=== PATIENT | male | born 1980 | race Caucasian/White ===

== ENCOUNTER 2017-02-17 17:44 | Inpatient (IN) | payer OTHER ==
[~2017-02-17] VITALS: Ht 170.2 cm; Wt 72.6 kg
[2017-02-17 18:08] VITALS: BP 133/95
[2017-02-17] MEDS ORDERED: ASPI81EC98 PO (18:21)
[2017-02-17] MEDS ORDERED: LIDO4CRE22 TP (18:21)
[2017-02-17] MEDS ORDERED: METF1000 PO (18:21)
[2017-02-17] MEDS ORDERED: GABA-638 PO (18:21)
[2017-02-17] MEDS ORDERED: DICL1GEL TP (18:21)
[2017-02-17] MEDS ORDERED: LISI-424 PO (18:21)
[2017-02-17] MEDS ORDERED: INSU100S22 SUBQ (18:21)
[2017-02-17] MEDS ORDERED: GLIP5TAB4 PO (18:21)
[2017-02-17] MEDS ORDERED: BACL20TA4 PO (18:21)
[2017-02-17] MEDS ORDERED: METO50TA69 PO (18:21)
--- NOTE | 2017-02-17 18:34 | NUR ---
PATIENT TO BED 7.
[2017-02-17 18:49] LABS: HEMOGLOBIN 7.3 g/dL (12.0-18.0); MEAN CORPUSCULAR HEMOGLOBIN 15 pg (27-31)
[2017-02-17 18:53] LABS: HEMATOCRIT 26.4 % (36-52); MEAN CORPUSCULAR HGB CONC 28 g/dL (33-37); MEAN CORPUSCULAR VOLUME 53 fL (80-94); PLATELET COUNT (AUTO) 435 K/uL (140-450); RED BLOOD CELL COUNT(AUTO) 4.99 MIL/uL (4.20-6.10); RED CELL DISTRIBUTION WIDTH 19.5 % (11.6-13.7); WHITE BLOOD COUNT (AUTO) 7.7 K/uL (4.8-10.8)
--- NOTE | 2017-02-17 18:54 | NUR ---
36/M PRESENT TO ER C/O INSTRUCTED TO COME TO ER BY PMD---HGB 6 TODAY AT PMD OFFICE, PALE APPEARING DENIES RECTAL BLEEDING / NO HEMATURIA/ NO HEMATEMESIS ; DENIES DIZZINESS, DENIES FATIGUE; AAOx4, PERRLA, BREATHING EVEN AND EFFORTLESS. ERMD NOTIFIED OF PATIENT STATUS
[2017-02-17 18:56] LABS: APPEARANCE,URINE CLEAR (CLEAR); BLOOD, URINE NEGATIVE (NEGATIVE); COLOR,URINE YELLOW (YELLOW); LEUKOCYTE ESTERASE ,URINE NEGATIVE (NEGATIVE); NITRITE, URINE NEGATIVE (NEGATIVE); PH,URINE 5.5 (5.0-9.0); PROTEIN,URINE TRACE (NEGATIVE); UGLUCOSE TRACE (NEGATIVE); UROBILINOGEN,URINE 0.2 EU/dL (0.2 - 1)
[2017-02-17 18:57] LABS: BASOPHILS # (AUTO) 0.1 K/uL (0.00-0.22); EOSINOPHILS # (AUTO) 0.3 K/uL (0-0.4); LYMPHOCYTES # (AUTO) 2.1 K/uL (2.0-11.5); MONOCYTES # (AUTO) 0.5 K/uL (0.8-1.0); NEUTROPHILS # (AUTO) 4.9 K/uL (1.8-7.7)
--- NOTE | 2017-02-17 19:00 | NUR ---
Patient being evaluated by physician at bedside.
[2017-02-17 19:02] LABS: BILIRUBIN,URINE NEGATIVE (NEGATIVE)
[2017-02-17 19:03] LABS: INR 1.1 (0.8-1.2); PROTHROMBIN TIME 10.3 secs (10.8-13.4)
[2017-02-17 19:03] LABS: BACTERIA,URINE RARE /HPF (None Seen); MUCUS,URINE 4+ /LPF (None Seen); RBC,URINE 0-3 /HPF (0-5); SQUAMOUS EPITHELIAL CELL,UR 0-3 /LPF (0-3 (FEW)); WBC,URINE 0-3 /HPF (0-5)
[2017-02-17 19:09] LABS: ANION GAP 11.9 (8-16); CARBON DIOXIDE 28.1 mmol/L (21-32); CREATININE 0.8 mg/dL (0.6-1.3); TOTAL BILIRUBIN 0.2 mg/dL (0.0-1.0); TOTAL PROTEIN, SERUM 8.2 g/dL (6.4-8.2)
[2017-02-17] MEDS ORDERED: DEXTROSE 50% 50 ML SYR IVP ONE (19:20)
[2017-02-17] MEDS ORDERED: ALBUTEROL 0.083% 2.5 MG/3 ML NEBU IH PRN (19:50)
[2017-02-17] MEDS ORDERED: LORazepam 2 MG/ML VIAL IVP PRN (19:50)
[2017-02-17] MEDS ORDERED: MORPHINE SULFATE 2 MG/ML SYR IVP PRN (19:50)
[2017-02-17] MEDS ORDERED: HYDROcodone/APAP 5/325 MG 1 TAB TAB PO PRN (19:50)
[2017-02-17] MEDS ORDERED: ONDANSETRON 4 MG/2 ML VIAL IVP PRN (19:50)
[2017-02-17] MEDS ORDERED: INSULIN LISPRO SLIDING SCALE 100 UNITS/ML VIAL SUBQ PRN (19:50)
[2017-02-17] MEDS ORDERED: ACETAMINOPHEN 325 MG TAB PO PRN (19:50)
[2017-02-17] MEDS ORDERED: DEXTROSE 50% 50 ML SYR IVP PRN (19:50)
--- NOTE | 2017-02-17 20:15 | NUR ---
ADMITTED THIS 36 YEAR OLD MALE FROM ER PER STEVEN WITH CC OF ABNORMAL LABS WITH DX OF ANEMIA, ASSESSMENT DONE, VITAL SIGNS STABLE, DENIES ANY PAIN OR BLEEDING, SKIN IS INTACT, ORIENTED TO ROOM AND CALL LIGHT, INFORMED THE PLAN FOR 2 UNITS PRBC TRANSFUSION TONIGHT, VERBALIZED UNDERSTANDING, SAFETY MEASURES IN PLACE, CALL LIGHT WITHIN REACH.
--- NOTE | 2017-02-17 20:18 | NUR ---
Patient will be admitted to care of DR KILPATRICK. Admited to TELE. Will go to room 112B. Belongings list completed. Report to WINNIE PHILLIP.
[2017-02-17 20:30] VITALS: BP 116/74
--- NOTE | 2017-02-17 20:35 | NUR ---
BLOOD SUGAR CHECKED WITH 87 RESULT, TURKEY SANDWICH AND SODA PROVIDED, CONSUMED 100%, AMBULATORY TO BR WITH STEADY GAIT, ALL NEEDS ATTENDED.
[2017-02-17] MEDS: BLOOD GLUCOSE MONITORING 1 DEV DEV FS SCH (21:00)
[2017-02-17] MEDS ORDERED: PNEUMOCOCCAL VACCINE 23 MCG/0.5 ML VIAL IMVAC PRN (21:05)
--- NOTE | 2017-02-17 22:02 | NUR ---
VITAL SIGNS STABLE, AFEBRILE, 1ST UNIT PRBC STARTED, MONITORED FOR REACTION, VITAL SIGNS PER PROTOCOL.
[2017-02-17] MEDS: NACL 0.9% 1,000 ML IV SCH (22:17)
[2017-02-17 22:23] LABS: CKMB RELATIVE INDEX 1.4 (0.0-2.5); CREATINE KINASE MB 1.2 ng/mL (0-3.6)
--- NOTE | 2017-02-17 22:55 | NUR ---
ROUNDED ON PT, AWAKE TALKING TO SARITAE AT BEDSIDE, BLOOD TRANSFUSION ON-GOING, VITAL SIGNS STABLE, NO ADVERSE REACTION NOTED, MONITORED CLOSELY.
[2017-02-18] VITALS: BP 107/64
--- NOTE | 2017-02-18 01:10 | NUR ---
1ST UNIT PRBC DONE WITH NO REACTION NOTED, VITAL SIGNS STABLE, DENIES ANY PAIN AND NO SOB NOTED, 2ND UNIT PRBC STARTED, MONITORED FOR REACTION, VITAL SIGNS PER PROTOCOL.
[2017-02-18 03:35] LABS: CREATINE KINASE MB 0.6 ng/mL (0-3.6)
[2017-02-18 04:00] VITALS: BP 107/77
--- NOTE | 2017-02-18 04:20 | NUR ---
2ND UNIT PRBC DONE WITH NO REACTION NOTED, VITAL SIGNS STABLE, AMBULATED TO BR WITH STEADY GAIT AND VOIDED FREELY, IVF OF NS @80ML/H RESUMED, MONITORED CLOSELY.
--- NOTE | 2017-02-18 05:50 | NUR ---
BLOOD SUGAR CHECKED WITH 77 RESULT, ASYMPTOMATIC, ORANGE JUICE X2 PROVIDED, NO DISTRESS AT THIS TIME, IVF INFUSING WELL.
[2017-02-18 06:42] LABS: ANION GAP 9.5 (8-16); CALCIUM 8.3 mg/dL (8.5-10.1); CARBON DIOXIDE 28.6 mmol/L (21-32); CREATININE 0.8 mg/dL (0.6-1.3); POTASSIUM 4.1 mmol/L (3.5-5.1)
[2017-02-18] MEDS: BLOOD GLUCOSE MONITORING 1 DEV DEV FS SCH ×2 (06:45→11:16)
--- NOTE | 2017-02-18 06:50 | NUR ---
PATIENT HAS BEEN SCREENED AND CATEGORIZED MODERATE NUTRITION RISK. PATIENT WILL BE SEEN WITHIN 3-5 DAYS OF ADMISSION. 02/19/17-02/21/17 JESICA PIZANO MS, RDN
[2017-02-18 07:01] LABS: HEMATOCRIT 28.1 % (36-52); HEMOGLOBIN 8.6 g/dL (12.0-18.0); MEAN CORPUSCULAR HEMOGLOBIN 19 pg (27-31); MEAN CORPUSCULAR HGB CONC 30 g/dL (33-37); MEAN CORPUSCULAR VOLUME 61 fL (80-94); PLATELET COUNT (AUTO) 286 K/uL (140-450); RED BLOOD CELL COUNT(AUTO) 4.61 MIL/uL (4.20-6.10); RED CELL DISTRIBUTION WIDTH 31.3 % (11.6-13.7); WHITE BLOOD COUNT (AUTO) 7.8 K/uL (4.8-10.8)
[2017-02-18 07:07] LABS: EOSINOPHILS % (MANUAL) 4 % (0-4); LYMPHOCYTES % (MANUAL) 31 % (20-46); MONOCYTES % (MANUAL) 6 % (5-12); NEUTROPHILS % (MANUAL) 59 (43-65)
[2017-02-18 07:08] LABS: ANISOCYTOSIS 3+; HYPOCHROMASIA 2+
--- NOTE | 2017-02-18 07:16 | NUR ---
PT AWAKE, NO SIGNS OF DISTRESS, REPORT GIVEN TO RN REGINA FOR CONTINUITY OF CARE.
--- NOTE | 2017-02-18 07:20 | NUR ---
REPORT RECEIVED FROM ANALYTICAL DATA SCIENTIST, PT AAOX4, PT RESTING QUIETLY IN BED, RESP EVEN UNLABORED ON ROOM AIR, SKIN WARM DRY COLOR WNL, PLAN OF CARE REVIEWED, NO QUESTIONS OR CONCERNS, PT REPORTS NO PAIN OR DISCOMFORT, CALL [place] WITHIN REACH, SIDE RAILS UP, BED LOCKED IN LOW POSITION, WILL CONTINUE TO MONITOR.
[2017-02-18 08:00] VITALS: BP 114/84
[2017-02-18] MEDS: NACL 0.9% 1,000 ML IV SCH (08:20)
[2017-02-18] MEDS ORDERED: MAG SULF 2000 MG/WATER PREMIX 50 ML IV SCH (09:00)
--- NOTE | 2017-02-18 09:21 | NUR ---
MAG LEVEL 1.5 THIS AM, DR KILPATRICK NOTIFIED ON THE PHONE, MAG 2G IVPB STARTED AT THIS TIME, PT AAOX4, IVF INFUSING WELL, SITE CLEAR, PT REMAINS ON BOILING HOUSE HAND, DENIES PAIN OR DISCOMFORT, NO IMMEDIATE NEEDS AT THIS TIME, WILL CONTINEU TO MONITOR.
[2017-02-18 11:54] VITALS: BP 123/87
--- NOTE | 2017-02-18 11:56 | NUR ---
PT SITTING UP TALKING WITH VISITING FAMILY IN NAD, PT DENIES PAIN OR DISCOMFORT, VITALS STABLE, IVF INFUSING WELL, SITE CLEAR, DENIES ANY IMMEDIATE NEEDS, PT REAMINS ON ARTISTIC DIRECTOR, CALL [place] WITHIN REACH, SIDE RAILS UP, BED LOCKED IN LOW POSITION, WILL CONTINUE TO MONITOR.
[2017-02-18 12:02] LABS: CREATINE KINASE MB 0.7 ng/mL (0-3.6)
[2017-02-18] MEDS ORDERED: FERR325E14 PO (13:46)
--- NOTE | 2017-02-18 14:00 | NUR ---
DISCHARGE ORDER RECEIVED, PT AWARE OF PLAN, AT BEDSIDE.
--- NOTE | 2017-02-18 16:04 | NUR ---
DC INSTRUCTION AND RX GIVEN AND EXPLAINED TO PT, PT VERBALIZED FULL UNDERSTANDING, PT AWARE TO F/U WITH PCP WITHIN 1-2WKS, PT AWARE TO RX TO PHARMACY, IV DC'D, CATH TIP INTACT, BLEEDING CONTROLLED, NO S/S OF REACTION AFTER PNEUMOVAX NOTED, DC HOME NOW WITH , AMBULATORY, ESCORTED OUT BY RN.
[2017-02-20 16:06] LABS: FOLIC ACID 12.8 ng/mL (>3.0)
== END 2017-02-18 16:07 | disposition home or self-care (01) | DRG 663 ==
LOC: MED 17:44 → MTU 19:54
PROVIDERS: ADMIT Internal Medicine Pulmonary Disease; ATTEND Internal Medicine Pulmonary Disease
PROC: 30233N1 Transfusion of Nonautologous Red Blood Cells into Peripheral Vein, Percutaneous Approach (ICD-10-PCS; principal; 2017-02-17)
DX: D50.9 Iron deficiency anemia, unspecified (principal); I10 Essential (primary) hypertension; E11.9 Type 2 diabetes mellitus without complications; E78.5 Hyperlipidemia, unspecified; F17.290 Nicotine dependence, other tobacco product, uncomplicated; G89.29 Other chronic pain
CPT/HCPCS: 36415; 80048; 80053; 81001; 82550; 82553; 82607; 82728; 82746; 82948; 83540; 83735; 84484; 85025; 85045; 85610; 86886; 86900; 86901; 86920; 87081; 90732; 96374; 99285; J3475; J7030; P9016

== ENCOUNTER 2018-01-05 18:10 | Emergency (ER) | payer OTHER ==
[~2018-01-05] VITALS: Ht 170.2 cm; Wt 73.0 kg
[~2018-01-05 18:10] MED LIST: BACL20TA4 PO; DICL1GEL19 TP; FERR325E14 PO; GABA-638 PO; GLIP5TAB4 PO; INSU100S22 SUBQ; LIDO4CRE22 TP; LISI-424 PO; METF1000 PO; METO50TA20 PO
[2018-01-05 18:13] VITALS: BP 142/96
--- NOTE | 2018-01-05 18:24 | NUR ---
TO LOBBY A/W BED, GHASSAN VERA, DENNY NOTED
--- NOTE | 2018-01-05 19:10 | NUR ---
PATIENT PRESENTS TO ED WITH RIGHT LOWER QUADRANT ABDOMINAL ACHING PAIN X1 DAY. PT STATES NORMAL BOWEL PATTERN, SOME NAUSEA WITHOUT VOMITING . DENIES DIARREHA; SKIN IS PINK/WARM/DRY; AAOX4 WITH EVEN AND STEADY GAIT; LUNGS CLEAR BL; HR EVEN AND REGULAR; PT DENIES ANY FEVER, CP, SOB, OR COUGH AT THIS TIME; PATIENT STATES PAIN OF 8/10 AT THIS TIME; VSS; PATIENT POSITIONED FOR COMFORT; HOB ELEVATED; BEDRAILS UP X1; BED DOWN. ER MD MADE AWARE OF PT STATUS. CONTINUE TO MONITOR.
[2018-01-05] MEDS ORDERED: NACL 0.9% 1,000 ML IV SCH (19:36)
[2018-01-05] MEDS ORDERED: KETOROLAC 30 MG/ML VIAL IVP ONE (19:40)
[2018-01-05 19:58] LABS: BASOPHILS % (AUTO) 0.2 % (0.0-2.0); EOSINOPHILS # (AUTO) 0.2 K/uL (0-0.4); EOSINOPHILS % (AUTO) 2.2 % (0.0-4.0); HEMATOCRIT 44.2 % (36-52); LYMPHOCYTES # (AUTO) 2.2 K/uL (2.0-11.5); LYMPHOCYTES % (AUTO) 21.1 % (20.5-51.1); MEAN CORPUSCULAR HEMOGLOBIN 29 pg (27-31); MEAN CORPUSCULAR HGB CONC 34 g/dL (33-37); MEAN CORPUSCULAR VOLUME 85.6 fL (80-94); MONOCYTES # (AUTO) 0.8 K/uL (0.8-1.0); MONOCYTES % (AUTO) 7.6 % (1.7-9.3); NEUTROPHILS # (AUTO) 7.1 K/uL (1.8-7.7); NEUTROPHILS % (AUTO) 68.9 % (42.2-75.2); PLATELET COUNT (AUTO) 221 K/uL (140-450); RED BLOOD CELL COUNT(AUTO) 5.17 MIL/uL (4.20-6.10); RED CELL DISTRIBUTION WIDTH 13.5 % (11.6-13.7); WHITE BLOOD COUNT (AUTO) 10.3 K/uL (4.8-10.8)
[2018-01-05 20:06] LABS: ANION GAP 14.5 (8-16); CARBON DIOXIDE 29.6 mmol/L (21-32); POTASSIUM 4.1 mmol/L (3.5-5.1)
[2018-01-05 20:12] LABS: ALBUMIN 4.2 g/dL (3.4-5.0); TOTAL BILIRUBIN 0.4 mg/dL (0.0-1.0)
[2018-01-05] MEDS ORDERED: MORPHINE SULFATE 4 MG/ML SYR IVP ONE (21:10)
[2018-01-05] MEDS ORDERED: ONDANSETRON 4 MG/2 ML VIAL IVP ONE (21:10)
[2018-01-05 22:17] VITALS: BP 142/96
--- NOTE | 2018-01-05 22:17 | NUR ---
Patient discharged with v/s stable with decreased pain. Written and verbal after care instructions given and explained. Patient alert, oriented and verbalized understanding of instructions. Ambulatory with steady gait. All questions addressed prior to discharge. ID band removed. Patient advised to follow up with PMD. Rx of Motrin, Zofran, and [place] given. Patient educated on indication of medication including possible reaction and side effects. Opportunity to ask questions provided and answered.
== END 2018-01-05 22:17 | disposition home or self-care (01) ==
LOC: MED 18:10
DX: R10.11 Right upper quadrant pain (principal); R11.0 Nausea; E11.9 Type 2 diabetes mellitus without complications; F03.90 Unspecified dementia, unspecified severity, without behavioral disturbance, psychotic disturbance, mood disturbance, and anxiety; D64.9 Anemia, unspecified; Z79.899 Other long term (current) drug therapy; Z79.84 Long term (current) use of oral hypoglycemic drugs
CPT/HCPCS: 36415; 74176; 80053; 81002; 83690; 85025; 96374; 96375; 99285; J1885; J2270; J2405